=== PATIENT | female | born 1950 | race Caucasian/White ===

== ENCOUNTER → 2023-06-24 08:40 | Outpatient (BNVA) | payer MEDICARE, SELFPAY | PROVIDERS: PCP Family Medicine; Referring Provider Family Medicine; Visit Provider Student in an Organized Health Care Education/Training Program | DX: M16.11 Unilateral primary osteoarthritis, right hip (principal) | CPT/HCPCS: 99202 ==

== ENCOUNTER → 2023-07-11 12:42 | Outpatient (BNVA) | payer MEDICARE, SELFPAY | PROVIDERS: PCP Family Medicine; Referring Provider Family Medicine; Visit Provider Physician Assistant | DX: M16.11 Unilateral primary osteoarthritis, right hip (principal) | CPT/HCPCS: 20611; J1040 ==

== ENCOUNTER → 2023-10-21 12:15 | Outpatient (BNVA) | payer MEDICARE, SELFPAY | PROVIDERS: PCP Family Medicine; Referring Provider Family Medicine; Visit Provider Student in an Organized Health Care Education/Training Program | DX: J45.909 Unspecified asthma, uncomplicated (principal) | CPT/HCPCS: 99214 ==

== ENCOUNTER 2023-11-08 01:45 | Outpatient (CLI) | payer MEDICARE, SELFPAY ==
[2023-11-08 11:43] LABS: HCT 36.2 % (36.0-46.0); HGB 12.4 g/dL (11.2-15.7); MCH 30.8 pg (27.0-33.0); MCHC 34.3 % (32.0-36.0); MCV 90 fL (80-95); MPV 9.1 fL (8.0-11.0); Platelet Count 303 10^3/uL (130-400); RBC 4.02 10^6/uL (3.93-5.22); RDW 12.1 % (11.7-14.6); RDW-SD 39.9 fL; WBC 7.32 10^3/uL (4.4-10.8)
[2023-11-08 12:21] LABS: BUN 9 mg/dL (7-18); CREATININE 0.9 mg/dL (0.55-1.02); Calcium 9.6 mg/dL (8.5-10.1); Chloride 100 mmol/L (98-107); Estimated GFR 67.92 (mL/min/1.73m2); Glucose 113 mg/dL (74-106); Potassium 4.2 mmol/L (3.5-5.1); Sodium 138 mmol/L (136-145)
== END 2023-11-08 01:46 | disposition home or self-care (01) ==
LOC: LBO 01:45
PROVIDERS: PCP Family Medicine; Visit Provider Student in an Organized Health Care Education/Training Program
DX: Z01.818 Encounter for other preprocedural examination
CPT/HCPCS: 36415; 80048; 85027

== ENCOUNTER 2023-11-08 10:03 | Outpatient (CLI) | payer MEDICARE, SELFPAY ==
--- NOTE | 2023-11-08 10:00 | DI.RAD_ITS ---
Exam(s) XR PELVIS AP EXAM: XR PELVIS AP CLINICAL HISTORY: PRE OP R JAYNE. TECHNIQUE: 2D digital imaging was performed.One images were obtained. COMPARISON: CR XR HIP MIN 2V RT from 02/13/2023 FINDINGS: BONES: No acute fracture is present. No bony destructive lesion is seen. Stable deformity of the late ral aspect of the right femoral head. JOINTS: No dislocation present. Stable marked narrowing of the superior right hip joint space. SOFT TISSUE: Normal. IMPRESSION: Stable marked degenerative changes of the right hip. DATA REPOSITORY: RADIATION DOSE DELIVERED:
== END 2023-11-08 10:04 | disposition home or self-care (01) ==
LOC: DIORS 10:03
PROVIDERS: PCP Family Medicine; Visit Provider Physician Assistant
DX: M16.11 Unilateral primary osteoarthritis, right hip (principal); Z01.818 Encounter for other preprocedural examination
CPT/HCPCS: 72170

== ENCOUNTER 2023-11-19 08:15 | Day surgery (SDC) | payer MEDICARE, SELFPAY ==
[2023-11-19] VITALS (8 sets, daily range): BP systolic 129–172; BP diastolic 77–103; PULSE 85–101; RESP 14–26; TEMP 36.2–36.6; O2SAT 96–98; BMI 28.7
--- NOTE | 2023-11-19 08:37 | W.ANESPRE ---
General Info Date of Service Date Performed: 11/19/23 Height: 5 ft 6.5 in Weight: 82 kg Body Mass Index (BMI): 28.7 Surgical Procedure: Operation Date: 11/19/23 11:20 Proposed Procedure Side Surgeon p Hip Total Hip Anterior Right Stephen Banda MD Meds Allergies and Home Medications Allergies Allergy/AdvReac Type Severity Reaction Status Date / Time No Known Allergies Allergy Verified 11/19/23 08:32 Home Medication Medication Instructions Recorded fluticasone furoate 200 1 inh inhalation DAILY 06/08/22 mcg-vilanterol 25 mcg/dose inhalation powder (Breo Ellipta) fluticasone propionate 50 1 spray intranasal BID 06/08/22 mcg/actuation nasal spray,suspension mepolizumab 100 mg/mL subcutaneous 100 mg subcut Q4W 06/08/22 auto-injector (Nucala) montelukast 10 mg tablet 10 mg PO DAILY 06/08/22 multivitamin 1 tab PO DAILY 06/08/22 omeprazole 20 mg capsule,delayed 20 mg PO BID 06/08/22 release Sleep Chew PO 10/17/22 loratadine 10 mg tablet (Allergy 10 mg PO DAILY 10/17/22 Relief (loratadine)) cyclobenzaprine 10 mg tablet 10 mg PO BID 11/08/23 Current Visit Medications: Current Medications Generic Name Dose Route Start Last Admin Trade Name Freq PRN Reason Stop Dose Admin Acetaminophen 1,000 mg 11/19/23 06:00 Acetaminophen 500 Mg Tab PO 12/19/23 05:59 PREOP SERGE Acetaminophen 1,000 mg 11/19/23 07:23 Acetaminophen 500 Mg Tab PO 12/19/23 07:22 TID PRN PRN Analgesia Celecoxib 400 mg 11/19/23 06:00 Celecoxib 200 Mg Cap PO 12/19/23 05:59 PREOP SERGE Docusate Sodium 100 mg 11/19/23 07:23 Docusate Sodium 100 Mg Cap PO 12/19/23 07:22 BID PRN PRN Constipation Tranexamic Acid 1,000 mg/ 60 mls @ 360 mls/hr 11/19/23 06:00 Sodium Chloride IV 12/19/23 05:59 PREOP SERGE Ringer's Solution 1,000 mls @ 80 mls/hr 11/19/23 06:00 IV 12/18/23 23:59 INFUSION SERGE Cefazolin Sodium/Dextrose 2 gm in 50 mls @ 100 mls/hr 11/19/23 06:00 Ancef Duplex IVPB 11/19/23 16:00 PREOP SERGE IV Miscellaneous Supplies 1 each 11/19/23 06:00 Iv Access IV 12/18/23 23:59 DIRECTED SERGE Ondansetron HCl 4 mg 11/19/23 07:23 Ondansetron 4 Mg/2 Ml Vial IVP 12/19/23 07:22 Q6H PRN PRN Nausea Oxycodone HCl 0 mg 11/19/23 07:23 Oxycodone 5 Mg Tab PO 12/19/23 07:22 Q3H PRN PRN Pain Polyethylene Glycol 17 gm 11/19/23 07:23 Polyethylene Glycol 3350 17 Gm Packet PO 12/19/23 07:22 BID PRN PRN Constipation Sodium Chloride 0 ml 11/19/23 06:00 Normal Saline Flush 10 Ml Syr IV 12/18/23 23:59 PRN PRN Sodium Chloride 0 ml 11/19/23 06:00 Normal Saline 10 Ml Vial IJ 12/18/23 23:59 DIRECTED PRN Sterile Water 0 ml 11/19/23 06:00 Water,Injection,Sterile 10 Ml Vial IJ 12/18/23 23:59 DIRECTED PRN PFSH Active Problems Active Problems: Problem Status Onset Code Osteoarthritis of right hip M16.11 Asthma J45.909 Overweight E66.3 Adenomatous colon polyp D12.6 Medical History Medical 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 Surgical History Surgical History H/O tubal ligation H/O endoscopy History of colonoscopy Tobacco Smoking/Tobacco Use Status: Never Alcohol Alcohol Intake: never Substance Use Substance use: Never Substance use type: does not use Vital Signs and Lab Results Vital Signs Most Recent Vital Signs in EMR: Most Recent Vital Signs Temp Pulse Resp BP Pulse Ox 36.6 C 101 H 16 172/96 H 96 11/19/23 08:21 11/19/23 08:21 11/19/23 08:21 11/19/23 08:21 11/19/23 08:21 Lab Results Blood Type / Crossmatch: No Data to Display Complete Blood Count: White Blood Count 7.32 10^3/uL (4.4-10.8) 11/08/23 11:35 Red Blood Count 4.02 10^6/uL (3.93-5.22) 11/08/23 11:35 Hemoglobin 12.4 g/dL (11.2-15.7) 11/08/23 11:35 Hematocrit 36.2 % (36.0-46.0) 11/08/23 11:35 Platelet Count 303 10^3/uL (130-400) 11/08/23 11:35 Complete Metabolic Panel: Sodium 138 mmol/L (136-145) 11/08/23 11:35 Potassium 4.2 mmol/L (3.5-5.1) 11/08/23 11:35 Chloride 100 mmol/L (98-107) 11/08/23 11:35 Carbon Dioxide 28.0 mmol/L (21.0-32.0) 11/08/23 11:35 BUN 9 mg/dL (7-18) 11/08/23 11:35 Creatinine 0.9 mg/dL (0.55-1.02) 11/08/23 11:35 Est GFR (CKD-EPI 2020) 67.92 (mL/min/1.73m2) 11/08/23 11:35 Calcium 9.6 mg/dL (8.5-10.1) 11/08/23 11:35 Glucose 113 mg/dL (74-106) H 11/08/23 11:35 Liver Function Panel: No Data to Display Coagulation Panel: No Data to Display Cardiac Panel: No Data to Display Arterial Blood Gas: No Data to Display Venous Blood Gas: No Data to Display Pancreas Panel: No Data to Display Thyroid Panel: No Data to Display Infectious Disease: No Data to Display Blood Cultures: No Data to Display Toxicology Panel: No Data to Display Anesthesia Assessment and Plan Anesthesia History Personal History: No History of Anesthesia Complications Family History: No Family History of Anesthesia Complications Exercise Tolerance Exercise Tolerance: Metabolic Equivalents>4 Pertinent Negatives Pertinent Negatives: No Symptoms of GERD, No Major Cardiovascular Symptoms or Complaints, No Major Pulmonary Symptoms or Complaints and No History of CVA/TIA Cardiac & Pulmonary Exam Cardiac Exam: Normal S1/S2 Heart Sounds Pulmonary Exam: Clear Bilateral Breath Sounds Implantable Cardiac Device Does patient have a Pacemaker or an ICD?: No Airway Exam Known Difficult Airway: No Mallampati Class: 1 Mouth Opening: Normal (> 3cm) Thyromental Distance: Greater than 3 cm Neck Range of Motion: Full ROM Neck Circumference: Normal Teeth Condition: Normal Dentition ASA Classification ASA Score: ASA 2 Emergency Case?: No NPO Status NPO Status: NPO Clears >2 hours, Solids >8 hours Anesthesia Plan Resuscitation Status: Full Code Anesthesia Technique: Spinal Anesthesia Airway Planned: Natural Airway Monitors Used: Standard Monitors Preoperative Comments:: pt asthma med controlled per pt report
[2023-11-19] MEDS: Acetaminophen 500 MG TAB 1000 MG PO (08:46)
[2023-11-19] MEDS: Celecoxib 200 MG CAP 400 MG PO (08:46)
[2023-11-19] MEDS: Lactated Ringers 1,000 ML 80 ML IV (08:58)
[2023-11-19] MEDS: ceFAZolin 2 GM/50 ML BAG IVPB (10:36)
--- NOTE | 2023-11-19 12:05 | DI.RAD_ITS ---
Exam(s) XR HIP RT IN OR EXAM: XR HIP RT IN OR CLINICAL HISTORY: Osteoarthritis of right hip. TECHNIQUE: 2D and realtime digital imaging was performed. COMPARISON: CR XR PELVIS AP from 11/08/2023 FINDINGS: A hard copy image shows placement of a right hip prosthesis. The alignment appears satisfactory. Please see procedure note for details. Fluoro time: 27.7seconds RADIATION DOSE DELIVERED: Ka,r=3.33 mGy
--- NOTE | 2023-11-19 12:12 | W.PM.OP ---
Date of service: 11/19/23 Time of Service: 11:15 Operative Note Operative Note DATE OF PROCEDURE: 11/19/23 PRE-OP DIAGNOSIS: Right Hip Osteoarthritis POST-OP DIAGNOSIS: same PROCEDURE: Right Anterior Total Hip Arthroplasty with Intraoperative Navigation SURGEON: Stephen Banda SALES REPRESENTATIVE PRINTING PAPER: Yobani Sketlon ANESTHESIA TYPE: Spinal Refer to Anesthesia Record ESTIMATED BLOOD LOSS: 350 PATHOLOGY: none sent TOURNIQUET TIME: 0 COMPLICATIONS: None Patient was transported to: PACU Patient's condition: stable Implants: 1. Depuy Normanna Acetabular Component, 50mm 2. Depuy Acetabular Liner, [id number] 3. Depuy Corail Standard Collared Femoral Stem, Size 14 4. Depuy Altrx Ceramic Femoral Head, Size 32+1mm Indications: I have seen Danielle in clinic for symptoms of hip arthritis, confirmed with radiographic findings. She has exhausted nonoperative methods and was having significant limitations in daily function and desired better function and less pain. I discussed the technical details of a hip replacement. I explained the risks of the procedure to include, but not limited to, bleeding, infection, pain, stiffness, fracture, damage to nerves and vessels, damage to muscles and tendons, loosening, instability, leg length inequality, need for repeat procedure, blood clot and cardiopulmonary demise. Despite these risks, Danielle elected to proceed. Findings: There was significant signs of arthritis throughout the hip. Procedure Description: Danielle was greeted in the preoperative holding area where the correct side was identified and marked. The consent was reviewed with the patient and signed. The history and physical was updated. All questions were answered. She was taken back to the operating room. A spinal anesthestic was then administered. The feet were wrapped with cast padding and Coban and then placed into the boot liners and then into the boots. Care was taken to protect the skin and make sure the heels were fully down and the boots were stable. The patient was then positioned onto the HANA table. Both legs were held in a neutral position. SCDs were applied. The patient was then slid down onto a peroneal post. Prophylactic antibiotics in the form of Cefazolin were administered. 1g of Tranxemic Acid was given intravenously within 30 minutes of incision. The right leg was then prepped with Chloraprep and draped in a standard fashion. A second prep with Chloraprep was performed prior to placement of a shower-curtain type drape with Iodine impregnated skin protection. A timeout to confirm correct identity, side and site, procedure, allergies, anesthesia, and medical concerns was performed. An obliquely oriented incision was made starting lateral to the ASIS and running distal over the Tensor Fascia Anayeli (TFL) muscle belly toward the fibular head, approximately 10cm. The skin and soft tissue was dissected sharply, through Leonel?s fascia, and to the fascia of the TFL. During this approach there was obvious movement from the lower extremities. It was thus deemed that the spinal did not set up fully and this she was converted to a general anesthesia. With the fascia and superior border of the IT band identified, the fascia was incised with a new knife just above any perforators from the IT band. The TFL muscle belly was bluntly dissected away from the fascia and moved laterally. The fat between TFL and rectus was identified to ensure the dissection was not within the TFL. Blunt dissection created space between abductors and the capsule and retractor was placed over the lateral femoral neck. The fibers of the rectus femoris tendon were identified and these were freed from the anterior capsule. A second cobra retractor was placed around the medial femoral neck. The TFL was further retracted laterally to show the deep fascia. Careful dissection through this layer identified three main crossing vessels of the lateral femoral circumflex. These were cauterized in multiple locations and then cut without any noticeable bleeding. The TFL was further released bluntly from the deep fascia to expose anterior hip capsule and fat The Ariel orthopaedic retractor was then placed beneath the TFL and against sartorius and medial soft tissues to protect and retract the soft tissues. A T-capsulotomy was then performed starting at the superior lateral acetabulum and moving distally to the intertrochanteric ridge. These capsular flaps were tagged with a No. 1 Ethibond and elevated from within. The capsular flaps were released to the shoulder of the lateral neck and to the lesser trochanter to give excellent visualization of the proximal femur. A neck osteotomy was performed using an oscillating saw based on preoperative templates. This cut started in the shoulder and of the lateral neck and exited medially. The saw was at all times directed medially to avoid injury to the greater trochanter. Gross traction was applied to the leg and the osteotomy opened. The femoral head was removed with a corkscrew, making sure to protect the TFL on its exit. Traction was released after head removal. This was measured on the back table to determine the starting reamer size. Portions of the rectus obscuring visualization were minimally elevated off the superior acetabulum. An anterior retractor was placed over the anterior wall between capsule and labrum and attached to the Gripper retraction system. The femur was rotated to 90 degrees and medial capsule was fully released until the lesser trochanter was palpable and visible; the femur was returned to 30 degrees. A posterior retractor was placed similarly between capsule and labrum. This provided excellent visualization. The contents of the cotyloid fossa were removed with electrocautery and the labrum was removed with a knife. There was a notable floor osteophyte. There was significant chondromalacia of the superior acetabulum. Acetabular reaming began with a 44mm reamer. This first reaming was directed anterior to posterior and medial to get down to the true floor. This was inspected and reamed until the true floor was reached. The anterior retractor was then released and entry and exit was provided by traction on the capsular flaps. I then reamed sequentially up to a 50mm reamer where good fit was obtained. The larger reamers were oriented based on anatomical reference of the anterior and lateral miller to ensure proper abduction and anteversion. Positioning and size was confirmed with the fluoroscopy. A 50mm Depuy Normanna acetabular component was selected. The acetabulum was reamed around the periphery with the selected acetabular size to prevent a rim fit. The deep tissues were irrigated. The acetabular component was then impacted in a position of about 40-45 degrees of abduction and 15-20 degrees of anteversion, using the patient?s anatomy as the ultimate landmark. Fluoroscopy was used to confirm this. There was excellent lace paper machine operator of the acetabular component and the inserting handle was removed. The acetabular liner, Depuy [id number] polyethylene liner, was inserted and lined up with the tines of the acetabular component. There was no soft tissue interposition. The liner was then impacted into position and confirmed to be well-seated. A portion of the rbeeka-articular cocktail was then injected around the acetabulum into the capsule and periosteum. This cocktail consisted of 123mg of Ropivacaine, 0.25mg of Epinephrine, 0.04mg of Clonidine, and 15mg of Ketorolac, diluted to 50cc. The leg was rotated to 120 degrees. Any remaining medial capsule was released until the lesser trochanter was easily palpable. A retractor was placed medially. The lateral capsule was further released into the shoulder to allow access to the greater trochanter. A Andrew retractor was placed over the greater trochanter which allowed the trochanter to flip in front of the capsule for excellent exposure. The leg was brought down into maximal extension and 20 degrees of adduction while ensuring there was no impingement on the acetabulum. Any remnant capsule within the trochanter was released. Piriformis and obturator externis were identified and protected. There was excellent access to the proximal femur. The lateral neck remnant was removed with a rongeur. A blunt canal probe was used to identify the canal and trajectory for later broaching. A box osteotome initiated the broach course. A small curved rasp and a curved curette were used to work laterally. Broaching then began with a size 8 Corail broach. This was inserted manually around the trochanter and into the canal before mallet blows. The broach was seated to a few millimeters below the cut level based on the neck cut and the preoperative template. Sequential broaching was continued with the eZelleronse pneumatic broaching device until a tight fit was obtained with good rotational control of the femur. A trial standard neck was inserted along with a +5 trial head. The leg was brought out of extension and adduction and then reduced with traction and internal rotation. The leg was stable anteriorly in a position of 30 degrees of extension and 90 degrees of external rotation. Fluoroscopy was used to ensure there was no fracture and the stem was seated well. Leg lengths were checked with an AP pelvis and pelvic reference points. SideStep navigation system was used to confirm appropriate positioning and leg length and offset. There was slight overcorrection of the offset and about 6 mm overcorrection of the leg length. Thus the broach was seated an additional 4 mm and the head was reduced to a +1 head. Once content with the desired offset and leg lengths, the leg was brought back into extension, external rotation and adduction. The periosteum and surrounding tissue was injected with remaining portion of the rebeka-articular cocktail. The proximal femur was irrigated as well as the deep tissues. The Friendemicuy Corail standard collared stem, size 14, was then manually inserted into the proximal femur making sure to control rotation. It was then malleted into position with light blows, giving breaks to allow bone expansion and decrease risk of fracture. The selected Depuy Altrx Ceramic Head, size 32+1mm, was then placed onto the clean and dry trunnion and secured with impaction onto the tapered fit. The leg was brought back out of extension and adduction and reduced with traction and internal rotation. Stability was confirmed with no shuck at 90 degrees of external rotation and 30 degrees of extension. No impingement through range of motion arc. Final x-ray images were obtained with fluoroscopy to confirm adequate positioning and no intraoperative fracture. The deep tissues were thoroughly irrigated with Surgiphor, betadine solution. This was allowed to sit in the wound for 3 minutes before being thoroughly irrigated out with normal saline. The capsule was then reapproximated with the previously placed Ethibond sutures. The TFL fascia was finally closed with a No. 2 Stratafix, barbed suture. Deep tissues were then reapproximated with 0 Vicryl and a running 2-0 Vicryl. The skin was closed with a running 4-0 Monocryl in a subcuticular fashion. This was reinforced with skin glue. A Mepilex silver dressing was applied. At the end of the case, all counts were correct. Danielle was transferred to the hospital bed without difficulty and suffering no apparent complication. Danielle has a good prognosis. Physical therapy will start today and without restrictions, weight-bearing as tolerated. Aspirin 81mg BID will be used for DVT prophylaxis.
--- NOTE | 2023-11-19 12:43 | PDOC.DSDIS_ITS ---
Date of service: 11/19/23 Time of Service: 12:43 Discharge Plan Disposition Patient Disposition: Home Condition: Good Discharge Details Reason For Visit: R THR Attending Provider: Stephen Banda Primary Care Provider: KRISTINA LUGO Home Meds and New Rx's Prescriptions: New acetaminophen 500 mg tablet 1,000 mg PO TID Qty: 90 3RF aspirin 81 mg tablet,delayed release (DR/EC) 81 mg PO BID Qty: 60 0RF celecoxib 200 mg capsule 200 mg PO BID Qty: 60 0RF dexamethasone 4 mg tablet 4 mg PO DAILY Qty: 2 0RF oxycodone 5 mg tablet 5 mg PO Q4H MDD 6 tabs PRN (Reason: pain) Qty: 20 0RF Continued loratadine [Allergy Relief (loratadine)] 10 mg tablet 10 mg PO DAILY Sleep Chew PO cyclobenzaprine 10 mg tablet 10 mg PO BID fluticasone furoate-vilanterol [Breo Ellipta] 200-25 mcg/dose blister with device 1 inh inhalation DAILY fluticasone propionate 50 mcg/actuation spray,suspension 1 spray intranasal BID Rx Instructions: administer into each nostril montelukast 10 mg tablet 10 mg PO DAILY multivitamin Tablet 1 tab PO DAILY Nucala 100 mg/mL auto-injector 100 mg subcut Q4W omeprazole 20 mg capsule,delayed release(DR/EC) 20 mg PO BID Discharge Instructions Additional Instructions: Total Hip Discharge Instructions Activity: The most important activity is to walk. You should try to take short walks a few times a day. You have no restrictions on movement or positioning, but do not try to force what you do. You will find some stiffness and weakness with hip flexion (lifting your knee). Do not try to strengthen this too early, continue to practice walking and stairs and this will come. - Outpatient physical therapy can be helpful to help return you to a normal gait and improve your flexibility and strength. This can start around 2 weeks. For some patients, it?s not necessary. Usually this is determined at the time of discharge or at the first post-operative visit. - You should wear the GORDO hose on both legs for 2 weeks. Dressing: Keep the surgical dressing in place for at least one week. After the first week it may be removed and replace with light gauze and tape or nothing. It may get wet after 3 days but avoid soaking the dressing. If it gets wet, just lightly pat dry. It is important to always keep some gauze between skin folds, especially when you are sitting. Spend some time with the wound exposed when you are lying flat as the incision does wrinkle onto itself. Medications: - You should take Tylenol and an anti-inflammatory Celebrex as your primary pain control medications. If the Celebrex is too expensive or not covered, please call the office for another alternative (Advil/Ibuprofen or Naproxen/Aleve). - You have been prescribed a stronger pain medication Oxycodone for breakthrough pain, take as needed as prescribed. - You will continue your omeprazole to help reduce stomach acid and reflux. - You have also been prescribed Decadron to help with post-operative nausea and pain. You will take this for two days starting tomorrow. - You will be taking Aspirin 81mg twice a day for DVT prevention unless instructed otherwise. - If you have constipation you should take Colace or Miralax (both [id number]). It takes most people 3-4 days to have a bowel movement. Follow-up: 2 weeks If you have any acute concerns or questions, please do not hesitate to contact the office at [phone]. You may contact Dr. Banda with any questions after hours through the hospital at [phone] or on his cell phone at [phone]. Referrals: Stephen Banda MD [ [facility] STAFF PHYSICIAN] - Equipment/Supplies: Walker Activity:: Activity as Tolerated Shower/Bathe:: 72 hours Diet:: As Tolerated
--- NOTE | 2023-11-19 13:11 | W.ANESPOSTOP ---
Postoperative Evaluation Date, Time and Location Date Performed: 11/19/23 Time Performed: 13:11 Patient Location: PACU Vital Signs Most Recent Imported Vital Signs: Most Recent Vital Signs Temp Pulse Resp BP Pulse Ox 36.5 C 86 14 166/86 H 96 11/19/23 13:05 11/19/23 13:05 11/19/23 13:05 11/19/23 13:05 11/19/23 13:05 Pain Score Most Recent Pain Score: Most Recent Pain Score Pain Level 0 11/19/23 13:05 Assessment Mental Status: Awake (Alert & Oriented to Patient Baseline) Airway and Respiratory Function: Patent airway with normal (patient baseline) respiratory exam Cardiovascular Function: Hemodynamically Stable Hydration Status: Adequately Hydrated Nausea & Vomiting: No Nausea or Vomiting Pain: Pain is tolerable per patient Peripheral Nerve Block: Patient did not receive a nerve block
--- NOTE | 2023-11-19 14:35 | PT.INIE ---
PT Notes Visit Reasons: R THR Physical Therapy Day Surgery Initial Evaluation Date: 11/19/2023 Referring Doctor: MATEUS Whalen PT Orders: PT CONSULT: S/P Ortho Surgery Precautions: WBAT on the R LE with AD. 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 Surgical History (Updated 06/08/22 @ 14:18 by Nayeli Bhagat) H/O tubal ligation H/O endoscopy History of colonoscopy Social History/Home Situation: Lives with in a private home with no steps to enter. Has been using a 4-wheeled walker at home due to worsening pain and decreasing safety of mobility ADL performance. Equipment Owned/DME: [employer] Subjective: Reported achiness and pain in R hip at 3/10 that minimally limited ambulation. Denied headache, chest pain, and lightheadedness throughout session. Objective: General Observation: Mepilex Ag over surgical incision. TEDS to Janna westong. Mental Status: A and O x 4 Pain: As above ROM: Right Lower Extremity: Hip flexion WFL. Hip abduction WFL. Knee flexion WFL. Ankle dorsiflexion WFL. Ankle plantarflexion WFL. Left Lower Extremity: Hip flexion WFL. Hip abduction WFL. Knee flexion WFL. Ankle dorsiflexion WFL. Ankle plantarflexion WFL. Strength: Right Lower Extremity: Hip flexors 5/5. Hip abductors 5/5. Knee flexors 5/5. Knee extensors 5/5. Ankle dorsiflexors 5/5. Ankle plantarflexors 5/5. Left Lower Extremity:Hip flexors 5/5. Hip abductors 5/5. Knee flexors 5/5. Knee extensors 5/5. Ankle dorsiflexors 5/5. Ankle plantarflexors 5/5. Sensation: intact as to pain and light pressure in B LE Bed Mobility/Transfers: Minimial cueing provided for use of B hands as needed for support, movement sequence, AD management, and posture to reduce fall risk and minimize pain report Sit to stand stand by assist Stand to sit stand by assist Bed to chair stand by assist Gait: Facilitated safe and correct performance of level surface ambulation covering a distance of 150 feet using step through reciprocal heel-toe gait pattern using the front wheeled walker with standby assist only and with report of mild aching on the right hip and the right lateral thigh. Minimal cueing provided for movement sequence, AD management, and posture to reduce fall risk and minimize pain report. Balance: Static Sitting: Normal Dynamic Sitting: Normal Static Standing: Fair Dynamic Standing: Fair Special Tests: Mobility Limitations Standardized Measure [facility]-PAC 6 clicks Basic Mobility Inpatient Short Form: Raw Score: 23 CMS Score: 11% deficit Informed Consent/Education: Trained patient with correct performance of exercises below to maximize motor control, joint flexibility, soft tissue extensibility of the [] hip musculature to facilitate return to independent functional mobility performance. Access Code: [email or web address] URL: [email or web address] Date: 11/19/2023 Prepared by: Maria A Ponce Exercises - Gluteal Sets - 1 x daily - 7 x weekly - 1 sets - 10 reps - 5 hold - Supine Heel Slide - 1 x daily - 7 x weekly - 1 sets - 10 reps - 5 hold - Supine Ankle Pumps - 1 x daily - 7 x weekly - 1 sets - 10 reps - 5 hold - Seated March - 1 x daily - 7 x weekly - 1 sets - 10 reps - 5 hold - Seated Long Arc Quad - 1 x daily - 7 x weekly - 1 sets - 10 reps - 5 hold patient instructed in purpose of PT consult. Packet containing JAYNE exercise protocol has been given to patient. Education and training on initial set of exercises that can be done at home have been completed with patient. Assessment: Patient requires the use of a front wheeled walker for mobility ADL performance maximize independence and reduce fall risk.Patient presents with clinical signs and symptoms consistent with current/admitting diagnoses that have resulted to mobility limitations, gait instability, generalized weakness, and impairment of motor control as demonstrated by the following impairment level findings: 1. Decreased strength toR hip major muscle groups 2. Impaired standing balance Impairments are contributing to the following functional limitations: 1. Inability to safely ambulate without assistive device 2. Increase completion time for mobility ADL performance 3. Increased fall risk Patient is assessed as a 17750 moderate complexity based on the following: History: 72-year-old female with impairment level findings, functional limitations, and past medical history as indicated above Examination: Demonstrable impairment in strength, balance, and mobility level with underlying impairments and functional limitations as documented above Presentation: Evolving Decision Makin moderate complexity Goals: N/A. PT evaluation and 1-2 treatment sessions only for functional mobility training using recommended AD and for HEP instruction. Plan of Care/Treatment Plan: N/A. PT evaluation and 1-2 treatment session only for functional mobility training using recommended AD and for HEP instruction. DISCHARGE RECOMMENDATIONS: Home when medically cleared by orthopedic surgeon. Recommend outpatient PT services in order to optimize functional mobility outcomes and facilitate return to independent community ambulation without an assistive device. TREATMENT CODE/TIME: 27895 x 22 minutes for 1 unit (14:35-14:57). Thank you for the opportunity to participate in the care of this patient. Please sign an return this page within 30 days if you agree with the above POC. Thank you! Physician Signature Date [facility] Thank you for the opportunity to participate in the care of this patient. Maria A Ponce PT, DPT, CLT [facility] [place], [place]
== END 2023-11-19 15:40 | disposition home or self-care (01) ==
PROVIDERS: PCP Family Medicine; Visit Provider Student in an Organized Health Care Education/Training Program
PROC: (CPT 27130; principal; 2023-11-19 11:00)
DX: M16.11 Unilateral primary osteoarthritis, right hip (principal); J45.909 Unspecified asthma, uncomplicated
CPT/HCPCS: 20985; 27130; C1776; 97162; 73501; J0690; J1100; J1805; J2001; J2250; J2371; J2401; J2405; J2704; J3010

== ENCOUNTER 2023-12-02 15:21 | Outpatient (CLI) | payer MEDICARE, SELFPAY ==
--- NOTE | 2023-12-02 13:30 | DI.RAD_ITS ---
Exam(s) XR HIP RT COMPLETE AP PELVIS EXAM: XR HIP RT COMPLETE AP PELVIS CLINICAL HISTORY: 1ST POST OP S/P R JAYNE. TECHNIQUE: 2D digital imaging was performed. Three views COMPARISON: CR XR PELVIS AP from 11/08/2023 XA XR HIP RT IN OR from 11/19/2023 FINDINGS: BONES: No acute fracture is present. No bony destructive lesion is seen. JOINTS: No dislocation present. There has been no change in the alignment of the right hip prosthesis . Left hip joint space is maintained. SOFT TISSUE: Normal. IMPRESSION: Stable appearance of right hip prosthesis. DATA REPOSITORY: RADIATION DOSE DELIVERED:
== END 2023-12-02 15:22 | disposition home or self-care (01) ==
LOC: DIORS 15:21
PROVIDERS: PCP Family Medicine; Referring Provider Family Medicine; Visit Provider Student in an Organized Health Care Education/Training Program
DX: Z96.641 Presence of right artificial hip joint (principal); Z47.1 Aftercare following joint replacement surgery
CPT/HCPCS: 73502

== ENCOUNTER → 2024-01-02 13:39 | Outpatient (BNVA) | payer MEDICARE, SELFPAY | PROVIDERS: PCP Family Medicine; Referring Provider Family Medicine; Visit Provider Student in an Organized Health Care Education/Training Program | DX: Z47.1 Aftercare following joint replacement surgery (principal); Z96.641 Presence of right artificial hip joint ==

== ENCOUNTER → 2024-03-09 12:47 | Outpatient (BNVA) | payer MEDICARE, SELFPAY | PROVIDERS: PCP Family Medicine; Referring Provider Family Medicine; Visit Provider Student in an Organized Health Care Education/Training Program | DX: Z47.1 Aftercare following joint replacement surgery (principal); Z96.641 Presence of right artificial hip joint ==

== ENCOUNTER → 2024-11-18 07:30 | Outpatient (BNVA) | payer MEDICARE, SELFPAY | PROVIDERS: PCP Family Medicine; Referring Provider Family Medicine; Visit Provider Physician Assistant Surgical | DX: J45.909 Unspecified asthma, uncomplicated (principal) | CPT/HCPCS: 99214 ==

== ENCOUNTER 2024-11-19 15:54 | Outpatient (CLI) | payer MEDICARE, SELFPAY ==
--- NOTE | 2024-11-19 13:00 | DI.RAD_ITS ---
Exam(s) XR HIP RT AP LAT ONLY EXAM: XR HIP RT AP LAT ONLY INDICATION: ANNUAL F/U R JAYNE. COMPARISON: CR XR HIP RT COMPLETE AP PELVIS from 12/02/2023 TECHNIQUE: 2D digital imaging was performed. Two views. FINDINGS: The right hip prosthesis show stable alignment. No abnormal surrounding bony lucencies. DATA REPOSITORY: RADIATION DOSE DELIVERED:
== END 2024-11-19 15:55 | disposition home or self-care (01) ==
LOC: DIORS 15:55
PROVIDERS: PCP Family Medicine; Visit Provider Student in an Organized Health Care Education/Training Program
DX: Z47.1 Aftercare following joint replacement surgery (principal); Z96.641 Presence of right artificial hip joint
CPT/HCPCS: 99213; 73502